=== PATIENT | female | born 1980 ===

== ENCOUNTER 2019-01-27 23:06 | Emergency (ER) | payer BC ==
[2019-01-28] MEDS ORDERED: cefTRIAXone\\ROCEPHIN 1 GM VIAL ONE
[2019-01-28] MEDS ORDERED: Ketorolac Tromethamine 30 MG/ML VIAL ONE
[2019-01-28] MEDS ORDERED: HYDROcodone/Acetaminophen 5/325 mg Tablet ONE
[2019-01-28] MEDS ORDERED: Lidocaine 1% PF 5 ML VIAL ONE (00:01)
== END 2019-01-28 00:35 | disposition home or self-care (01) ==
LOC: BURERS 23:06
DX: N61.0 Mastitis without abscess (principal); J45.909 Unspecified asthma, uncomplicated; Z79.51 Long term (current) use of inhaled steroids
CPT/HCPCS: 96372; J0696; J1885; J2001